=== PATIENT | male | born 1980 | race Caucasian/White ===

== ENCOUNTER 2019-04-09 21:31 | Emergency (ER) | payer MEDICAID ==
[~2019-04-09] VITALS: Ht 177.8 cm; Wt 71.6 kg
[2019-04-09 21:33] VITALS: BP 130/86
[2019-04-09] MEDS ORDERED: [UNRECOGNIZED DRUG - OTHER] (21:42)
[2019-04-09] MEDS ORDERED: LAMO200T3 PO (21:42)
[2019-04-09] MEDS ORDERED: LAMO25TA5 PO (21:43)
--- NOTE | 2019-04-09 22:04 | NUR ---
PA AT BEDSIDE FOR EVAL
--- NOTE | 2019-04-09 22:10 | NUR ---
[employer] OFFICER AT PT'S BEDSIDE
== END 2019-04-09 23:09 | disposition home or self-care (01) ==
LOC: ED 22:50
DX: S63.501A Unspecified sprain of right wrist, initial encounter (principal); M79.89 Other specified soft tissue disorders; X50.1XXA Overexertion from prolonged static or awkward postures, initial encounter; Y93.89 Activity, other specified; Y92.009 Unspecified place in unspecified non-institutional (private) residence as the place of occurrence of the external cause; Y99.8 Other external cause status
CPT/HCPCS: 29125; 82962; 99283